=== PATIENT | female | born 1940 | race Two or more races ===

== ENCOUNTER 2017-03-18 10:10 | Outpatient (CLI) | payer OTHER | END 2017-03-18 10:14 | disposition home or self-care (01) | LOC: TOM 10:10 | DX: K62.5 Hemorrhage of anus and rectum (principal) ==

== ENCOUNTER 2017-04-22 14:14 | Outpatient (CLI) | payer OTHER | END 2017-04-22 14:15 | disposition home or self-care (01) | LOC: LAB 14:14 | DX: I10 Essential (primary) hypertension (principal); E11.9 Type 2 diabetes mellitus without complications; E03.8 Other specified hypothyroidism; E78.2 Mixed hyperlipidemia ==

== ENCOUNTER 2017-05-11 12:40 | Emergency (ER) | payer OTHER ==
[~2017-05-11] VITALS: Ht 162.6 cm; Wt 47.2 kg
[2017-05-11] MEDS ORDERED: XANAX XR0.5 MG (12:52)
[2017-05-11] MEDS ORDERED: COZAAR100 MG (12:53)
[2017-05-11] MEDS ORDERED: AMLODIPINE BESY10 MG (12:53)
[2017-05-11] MEDS ORDERED: PLAVIX75 MG (12:53)
[2017-05-11] MEDS ORDERED: TRAM1TAB98 (12:53)
[2017-05-11] MEDS ORDERED: ACID CONTROL150 MG (12:54)
[2017-05-11] MEDS ORDERED: ZETIA10 MG (12:54)
[2017-05-11] MEDS ORDERED: DITROPAN5 MG (12:54)
[2017-05-11] MEDS ORDERED: ALTOPREV40 MG (12:54)
[2017-05-11] MEDS ORDERED: ANORO ELLIPTA1 EACH (12:55)
== END 2017-05-11 15:20 | disposition home or self-care (01) ==
LOC: ER 12:40
DX: B34.9 Viral infection, unspecified (principal); J11.1 Influenza due to unidentified influenza virus with other respiratory manifestations

== ENCOUNTER 2017-07-22 08:44 | Outpatient (CLI) | payer OTHER ==
[~2017-07-22 08:44] MED LIST: ACID CONTROL150 MG; ALTOPREV40 MG; AMLODIPINE BESY10 MG; ANORO ELLIPTA1 EACH; COZAAR100 MG; DITROPAN5 MG; PLAVIX75 MG; TRAM1TAB98; XANAX XR0.5 MG; ZETIA10 MG
== END 2017-07-22 08:50 | disposition home or self-care (01) ==
LOC: RAD 501 08:44
DX: J44.1 Chronic obstructive pulmonary disease with (acute) exacerbation (principal); Z72.0 Tobacco use; R06.02 Shortness of breath

== ENCOUNTER → 2017-08-19 09:47 | Outpatient (CLI) | payer OTHER | END | disposition home or self-care (01) | LOC: LAB 09:47 | DX: I10 Essential (primary) hypertension (principal); E11.9 Type 2 diabetes mellitus without complications; E03.8 Other specified hypothyroidism; E78.2 Mixed hyperlipidemia; K92.1 Melena; D64.0 Hereditary sideroblastic anemia ==

== ENCOUNTER → 2017-08-20 08:49 | Outpatient (CLI) | payer OTHER | END | disposition home or self-care (01) | LOC: LAB 08:49 | DX: I10 Essential (primary) hypertension (principal); E11.9 Type 2 diabetes mellitus without complications; E03.8 Other specified hypothyroidism; E78.2 Mixed hyperlipidemia; K92.1 Melena; D64.0 Hereditary sideroblastic anemia ==

== ENCOUNTER 2018-02-17 22:53 | Emergency (ER) | payer OTHER ==
[~2018-02-17] VITALS: Ht 152.4 cm; Wt 45.4 kg
== END 2018-02-19 16:40 | disposition home or self-care (01) ==
LOC: ER 22:53
DX: J44.9 Chronic obstructive pulmonary disease, unspecified (principal); B34.9 Viral infection, unspecified; J22 Unspecified acute lower respiratory infection; R09.02 Hypoxemia; R41.0 Disorientation, unspecified; R45.1 Restlessness and agitation; F41.1 Generalized anxiety disorder

== ENCOUNTER 2018-03-01 20:21 | Emergency (ER) | payer OTHER ==
[~2018-03-01] VITALS: Ht 157.5 cm; Wt 45.4 kg
[2018-03-02] MEDS ORDERED: LEVALBUTER1.25 MG/3 IH (00:31)
[2018-03-02] MEDS ORDERED: BUDESONIDE0.5 MG/2 M IH (00:31)
[2018-03-02] MEDS ORDERED: MEDROLPACK PO (00:31)
[2018-03-02] MEDS ORDERED: TESSALON PERLE100 M1 PO (00:31)
[2018-03-02] MEDS ORDERED: MUCINEX DM ER1 EAC1 PO (00:31)
== END 2018-03-02 00:50 ==
LOC: ER 20:21
DX: J45.901 Unspecified asthma with (acute) exacerbation (principal)